=== PATIENT | male | born 1955 | race Caucasian/White ===

== ENCOUNTER → 2017-09-11 | Outpatient (CLI) | payer OTHER ==
--- NOTE | 2017-09-11 12:12 | DIAGNOSTIC IMAGING REPORT ---
(RENAL)RETROPERITON COMP HISTORY: 62 years-old Male N48.6 Peyronie's [id number] microscopic hematuria COMPARISON: None available TECHNIQUE: Multiple real-time sonographic images of the kidneys and urinary bladder were obtained assessing grayscale appearance and color flow FINDINGS: Right kidney measures 12.8 x 5.7 x 5.5 cm and is unremarkable without renal calculi, hydronephrosis or focal mass lesion. Cortical medullary differentiation is within normal limits. Left kidney measures 13.6 x 7.5 x 6.9 cm. Hypoechoic lesion is noted within the interpolar region measuring up to 1.6 cm appearing mildly complex without internal vascularity identified. No significant through transmission. Cyst of the inferior pole left kidney measures up to 2.0 cm. No left-sided renal calculi or hydronephrosis. Urinary bladder is unremarkable with bilateral ureteral jets documented. IMPRESSION: 1. No renal calculi or hydronephrosis. 2. 1.6 cm hypoechoic lesion of the interpolar left kidney is nonspecific. This does not meet sonographic criteria for simple cyst . This could be further evaluated with CT renal protocol to exclude a small renal cell carcinoma. 3. Unremarkable sonographic appearance of the urinary bladder. The above report was generated using voice recognition software. It may contain grammatical, syntax or spelling errors. Electronically signed by: Sunny Yates M.D. 09/11/2017 12:11 PM Dictated Date/Time: 09/11/2017 12:07 PM
== END | disposition home or self-care (01) ==
LOC: C.ULTR 11:20
PROVIDERS: ATTEND Urology
DX: N48.6 Induration penis plastica (principal); R31.9 Hematuria, unspecified; N28.89 Other specified disorders of kidney and ureter